=== PATIENT | female | born 1980 | race Two or more races ===

== ENCOUNTER 2021-05-13 18:52 | Emergency (ER) | payer MEDICAID ==
[~2021-05-13] VITALS: Ht 157.5 cm; Wt 53.0 kg
[2021-05-13] MEDS ORDERED: ACETAMINOPHEN 500MG TABLET PO ONE (20:45)
[2021-05-13] MEDS ORDERED: IBUP-2029 MT (21:35)
[2021-05-13 23:30] VITALS: BP 110/66
== END 2021-05-13 23:30 | disposition home or self-care (01) ==
LOC: ER 19:07
DX: S92.355A Nondisplaced fracture of fifth metatarsal bone, left foot, initial encounter for closed fracture (principal); Z91.09 Other allergy status, other than to drugs and biological substances; W03.XXXA Other fall on same level due to collision with another person, initial encounter; Y93.89 Activity, other specified; Y92.018 Other place in single-family (private) house as the place of occurrence of the external cause
CPT/HCPCS: 29515; 73620; 99283